=== PATIENT | female | born 1975 | race Caucasian/White ===

== ENCOUNTER 2023-09-20 13:30 | Outpatient (CLI) | payer OTHER ==
--- NOTE | 2023-09-20 15:41 | XRAY Report ---
PROCEDURE: Elbow 3+V RT INDICATIONS: RIGHT ELBOW PAIN TECHNIQUE: 3 views of the elbow were acquired. COMPARISON: None. FINDINGS: Bones: No displaced fracture. Normal alignment. Soft tissues: No significant joint effusion. IMPRESSION: No acute radiographic abnormality. If there is high concern for occult injury, consider repeat radiog star or cross-sectional imaging. Reviewed by: Arun Gregorio MD on 09/20/2023 3:39 PM PST Approved by: Arun Gregorio MD on 09/20/2023 3:39 PM PST Station ID: [id number]
== END 2023-09-20 13:45 | disposition home or self-care (01) ==
LOC: DI.N 13:30
PROVIDERS: ATTEND Family Medicine
DX: M25.521 Pain in right elbow (principal)